=== PATIENT | female | born 1975 ===

== ENCOUNTER 2019-06-20 07:44 | Emergency (ER) | payer OTHER ==
[2019-06-20] MEDS ORDERED: predniSONE 20 MG TAB PO ONE (08:14)
[2019-06-20] MEDS ORDERED: oxyCODONE /ACETAMINOPHEN 5-325MG TAB PO ONE (08:14)
[2019-06-20] MEDS ORDERED: CYCLOBENZAPRINE 10 MG TAB PO ONE (08:14)
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
[2019-06-20 09:51] VITALS: BP 162/81
== END 2019-06-20 09:51 | disposition home or self-care (01) ==
LOC: ED 07:44
DX: S40.011A Contusion of right shoulder, initial encounter (principal); S20.211A Contusion of right front wall of thorax, initial encounter; S30.0XXA Contusion of lower back and pelvis, initial encounter; M79.10 Myalgia, unspecified site; Z79.1 Long term (current) use of non-steroidal anti-inflammatories (NSAID); Z79.899 Other long term (current) drug therapy; V89.2XXA Person injured in unspecified motor-vehicle accident, traffic, initial encounter; Y93.89 Activity, other specified; Y92.488 Other paved roadways as the place of occurrence of the external cause; Y99.8 Other external cause status
CPT/HCPCS: 71101; 72170; 73030; 99283; J7512